=== PATIENT | female | born 1955 | race American Indian/Alaskan Native ===

== ENCOUNTER 2016-05-24 10:55 | Inpatient (IN) | payer MEDICAID, OTHER ==
[2016-05-24 12:14] LABS: Hematocrit 36.3 % (30.3-42.9); Hemoglobin 11.6 gm/dl (10.1-14.3); Mean Corpuscular HGB Conc 32 % (30-34); Mean Corpuscular Hemoglobin 26 pg (28-32); Mean Corpuscular Volume 82 fl (79-97); Platelet Count 292 K/mm3 (140-440); Red Blood Count 4.43 M/mm3 (3.65-5.03); White Blood Count 10.5 K/mm3 (4.5-11.0)
[2016-05-24 12:23] LABS: Anion Gap 19 mmol/L; Blood Urea Nitrogen 18 mg/dL (7-17); Calcium 9.1 mg/dL (8.4-10.2); Carbon Dioxide 22 mmol/L (22-30); Chloride 96.7 mmol/L (98-107); Glucose 385 mg/dL (65-100); Potassium 4.4 mmol/L (3.6-5.0); Sodium 133 mmol/L (137-145)
--- NOTE | 2016-05-24 13:47 | XRay Report ---
RIGHT TOES, 3 VIEWS History: Cellulitis, evaluate for osteomyelitis. There appears to be soft tissue swelling and ulceration lateral to the fifth toe and medial to the great toe. Mild osteoarthritic changes are identified in the distal foot. No evidence for fracture, bony erosions or bone destruction. Impression: Soft tissue findings as described. No evidence for osteomyelitis on x-ray.
[2016-05-24] MEDS ORDERED: ZOSYN/NS 4.5GM/100ML 4.5 GM/100 ML VIAL IV ONE (16:00)
[2016-05-24] MEDS ORDERED: NACL 0.9% 1000 ML IV ONE (16:01)
--- NOTE | 2016-05-24 16:46 | Emergency Department Report ---
HPI - General Chief Complaint: Wound/Laceration Time Seen by Provider: 05/24/16 15:50 - HPI HPI: Chief complaint: Infected right foot HPI: Patient is an insulin-dependent diabetic and states she had a heating pad on her right foot last week developed a blister and subsequent infection. Patient has been on Bactrim for the last 5 days and states that her foot is getting worse. Patient has purulent drainage as well as swelling and erythema. Patient has not taken her insulin today or any of her medications. Mode of arrival: private car Source: Patient Began: Last Monday Duration: 5-6 days Context: See above Quality: Dull Severity: 10 out of 10 Improved with: Nothing Worsened with: Pain worse on walking Associated signs and symptoms: See above. No fever, nausea, vomiting ED Past Medical Hx - Past Medical History Hx Hypertension: Yes Hx Congestive Heart Failure: Yes Hx Diabetes: Yes Additional medical history: neuropathy - Surgical History Additional Surgical History: tubaligation - Social History Smoking Status: Current Every Day Smoker Substance Use Type: None - Medications Home Medications: Home Medications Medication Instructions Recorded Confirmed Last Taken Type Insulin Glargine [Lantus] 10 unit SUB-Q QHS 10/22/15 05/24/16 Unknown History Lisinopril [Zestril] 20 mg PO QDAY 10/22/15 05/24/16 1 Day Ago History Metformin HCl [Glucophage] 1,000 mg PO BID 10/22/15 05/24/16 1 Day Ago History traMADol [Ultram 50 MG tab] 50 mg PO Q6HR PRN #10 tablet 10/22/15 05/24/16 Unknown Rx Aspirin EC [Aspirin Enteric Coated 81 mg PO QDAY 05/24/16 05/24/16 1 Day Ago History TAB] AtorvaSTATin [Lipitor] 40 mg PO QHS 05/24/16 05/24/16 1 Day Ago History Carvedilol [Coreg] 12.5 mg PO BID 05/24/16 05/24/16 1 Day Ago History Furosemide [Lasix TAB] 40 mg PO BID 05/24/16 05/24/16 1 Day Ago History ED Review of Systems ROS: Stated complaint: DIABETIC RT TOE TURNING BLACK/RT TOE PAIN Other details as noted in HPI ROS Constitutional: No fever ENT: No uri symptoms Cardiovascular: No chest pain Respiratory: No sob or cough GI: No nausea vomiting or diarrhea : No dysuria frequency or urgency, Skin: See HPI Neuro: No focal weakness or numbness Psych: No depression Gabriel/lymph: No edema Physical Exam - Physical Exam Vital Signs: Vital Signs 05/24/16 11:33 Temperature 98.3 F Pulse Rate 90 Respiratory 18 Rate Blood Pressure 142/85 O2 Sat by Pulse 100 Oximetry Physical Exam: GENERAL: The patient is well-developed well-nourished . HEENT: Normocephalic. Atraumatic. Extraocular motions are intact. Patient has moist mucous membranes. NECK: Supple. No meningitic signs are noted. There is no adenopathy noted. CHEST/LUNGS: Clear to auscultation. There is no respiratory distress noted. HEART/CARDIOVASCULAR: Regular. There is no tachycardia. There is no gallop rub or murmur. ABDOMEN: Abdomen is soft, nontender. Patient has normal bowel sounds. There is no abdominal distention. SKIN: There is no edema. There is no diaphoresis. Right fifth toe with a large flap to the lateral fifth toe and bilateral foot. There is erythema and swelling and tenderness to the forefoot. Neurovascular intact. NEURO: The patient is awake, alert, and oriented. The patient is cooperative. The patient has no focal neurologic deficits. The patient has normal speech. MUSCULOSKELETAL: There is no tenderness or deformity. There is no limitation range of motion. There is no evidence of acute injury. ED Course Vital Signs 05/24/16 11:33 Temperature 98.3 F Pulse Rate 90 Respiratory 18 Rate Blood Pressure 142/85 O2 Sat by Pulse 100 Oximetry - Reevaluation(s) Reevaluation #1: 05/24/16 16:57 Wound was cultured and patient given zosyn and admitted to the hospitalist. Also given 2 L normal saline and 5 units of regular insulin IV ED Medical Decision Making - Lab Data Result diagrams: 05/24/16 11:54 05/24/16 11:54 Laboratory Tests 05/24/16 05/24/16 11:54 11:54 Calcium 9.1 C-Reactive Protein 4.90 H Critical care attestation.: If time is entered above; I have spent that time in minutes in the direct care of this critically ill patient, excluding procedure time. ED Disposition Clinical Impression: Cellulitis of right foot, Hyperglycemia Disposition: OP ADMITTED IP TO THIS HOSP Is pt being admited?: Yes Does the pt Need Aspirin: No Condition: Fair Instructions: Diabetes Mellitus Type 2 in Adults (ED) Time of Disposition: 16:01 (minute to the hospitalist)
--- NOTE | 2016-05-24 16:55 | Admit Criteria Form ---
Admission Criteria Documentation: CELLULITIS Clinical Indications for Admission to Inpatient Care (Place 'X' for any and all applicable criteria): Admission is indicated for ANY ONE of the following(1)(2)(3)(4)(5): [ ]I. Limb-threatening infection [X]II. High-risk comorbid condition as indicated by ANY ONE of the following: [X]a) Uncontrolled diabetes (eg, HbA1c greater than 10% (0.1)) [ ]b) Cirrhosis [ ]c) Neutropenia [ ]d) Asplenia [ ]e) Immunosuppression [ ]f) Symptomatic heart failure [ ]III. Failure of outpatient therapy as indicated by ALL of the following: [ ]a) Progression or no improvement after adequate trial (minimum of 48 hours, with longer period for stable lower extremity infection) [ ]b) Adequate antibiotic regimen as indicated by use of ANY ONE of the following: [ ]i) First-generation cephalosporin (e.g., cephalexin) [ ]ii) Antistaphylococcal penicillin (e.g., dicloxacillin) [ ]iii) Penicillin-allergic patient regimen (clindamycin, extended-spectrum fluoroquinolone, or doxycycline) [ ]iv) Resistant organism (eg, methicillin-resistant Staphylococcus aureus) regimen (6) [ ]c) Outpatient intravenous therapy regimen is not appropriate due to ANY ONE of the following. (7)(8)(9)(10): [ ]i) It was tried and was not successful (eg, progression of infection). [ ]ii) It is not available or cannot be arranged in a clinically appropriate time frame (e.g., the next day). [ ]iii) Clinical presentation (eg, acuity of infection, rapidity of progression, confirmed or suspected bacteremia) is judged to require ALL of the following: [ ]1) Immediate initiation of intravenous therapy ( eg, cannot wait for next day) [ ]2) Intensity of patient monitoring and observation (eg, vital sign measurement, checks for infection progression) that cannot be provided at other than inpatient level of care [ ]IV. Mental status changes [ ]V. Bacteremia [ ]. Hemodynamic instability [ ]VII. Suspected necrotizing soft tissue infection (e.g., gas in tissue)(11)( 12) [ ]VIII. Orbital infection (13)(14) [ ]IX. Associated surgical procedure (e.g., abscess drainage, debridement) not amenable to outpatient, emergency department, or observation care [ ]X. Cutaneous gangrene [ ]XI. High fever (temperature greater than 39.5 degrees C (103.1 degrees F) (oral)) not responsive to outpatient, emergency department, or observation care therapy [ ]XIII. Inpatient admission required rather than observation care (Also use Cellulitis: Observation Care as appropriate) because of ANY ONE of the following : [ ]a) Periorbital or perineal infection that is severe or worsening [ ]b) Severe pain requiring acute inpatient management [ ]c) IV fluid to replace significant ongoing (e.g., for over 24 hours) losses (greater than 3L/m2 per day) [ ]d) Compartment syndrome monitoring (17) [ ]e) Strict or protective (eg, laminar flow) isolation [ ]f) Urgent debridement or skin grafting [ ]g) Bone or joint debridement [ ]h) Immediate inpatient surgery [ ]i) Other condition, treatment or monitoring requiring inpatient admission Extended stay beyond goal length of stay may be needed for (1)(18): [ ]a) Necrotizing soft tissue infection or fasciitis [ ]b) Gram-negative infection [ ]c) Methicillin-resistant Staphylococcal aureus (MRSA) infection [ ]d) Peripheral venous insufficiency with cellulitis [ ]e) Extensive edema [ ]f) Sepsis or continued Hemodynamic instability [ ]g) Continued high fever or mental status change [ ]h) Bacteremia [ ]i) Active serious comorbid conditions ( eg, heart failure, renal insufficiency) The original [facility] content created by [facility] [employer] has been revised. The portions of the content which have been revised are identified through the use of italic text or in bold, and [facility] has neither reviewed nor approved the modified material. All other unmodified content is copyright [facility] Please see references footnoted in the original [facility] [employer] edition 2016 Admission Criteria Met: Yes
[2016-05-24] MEDS: PERCOCET 5/325 PO PRN (23:08)
[2016-05-25] MEDS ORDERED: ULTRAM PO PRN (00:36)
--- NOTE | 2016-05-25 00:36 | Event Note ---
Date: 05/24/16 See H/p in reports R Foot cellulitis predisposed by a burn injury to Rt Great toe. IDDM HTN HLD
[2016-05-25] MEDS: CLEOCIN 900 MG/50 mL 900 MG/50 ML BAG IV SCH ×4 (01:52→23:46)
[2016-05-25] MEDS: COREG PO SCH ×2 (01:53→10:44)
--- NOTE | 2016-05-25 03:10 | History and Physical Report ---
CHIEF COMPLAINT: Infected right foot for 5 days. HISTORY OF PRESENT ILLNESS: A 60-year-old -[place] female with history of insulin-dependent diabetes, apparently applied heating pad to her right foot last week and developed a blister. She ruptured the blister without keeping it closed till the blister ruptured spontaneously. The patient had purulent drainage from the blister site. Post rupture of blister infection spread from the right great toe to two-thirds of the right foot and up to the top of the ankle. No fever, no chills. Pain is about 5 on a scale of 1-10. Duration is 5-6 days. No relieving or exacerbating factors. Worsened with walking. No associated symptoms like fever, nausea, vomiting. PAST MEDICAL HISTORY: Significant for hypertension, congestive heart failure, diabetes, hyperlipidemia, peripheral neuropathy. PAST SURGICAL HISTORY: Tubal ligation. SOCIAL HISTORY: Current everyday smoker. CURRENT MEDICATIONS: Lantus 10 units subQ at bedtime, lisinopril 20 mg p.o. daily, metformin 1000 mg twice a day, tramadol 50 mg q.6h. p.r.n., aspirin 81 mg p.o. daily, atorvastatin 40 mg p.o. at bedtime, Coreg 12.5 p.o. b.i.d., furosemide 40 mg p.o. b.i.d. REVIEW OF SYSTEMS: CONSTITUTIONAL: No fever, no chills. No weight loss, no weight gain. HEENT: No sore throat, no postnasal drip. CARDIOVASCULAR AND RESPIRATORY SYSTEM: No shortness of breath, no chest pain, no diaphoresis. No palpitations. Little cough productive of yellow sputum. No wheezing, no rhonchi. GASTROINTESTINAL: No nausea, no vomiting, no diarrhea. GENITOURINARY: No dysuria, no flank pain. MUSCULOSKELETAL: Right foot redness up to the ankle. Ruptured blister with slight erythema and signs of infection on the right great toe. CENTRAL NERVOUS SYSTEM: Alert and oriented x 4, nonfocal exam. LABORATORY DATA: White count is 10,500, H and H 11.6 and 36.3, platelet count is 292,000. Sodium is 133, slightly low, potassium is 4.4, chloride is 96.7, bicarbonate is 22, BUN and creatinine is 18 and 1.0, glucose is 385. C-reactive protein is 4.9. ASSESSMENT AND PLAN: 1. Right foot cellulitis. The patient started on clindamycin 900 q.8h. We will reevaluate the antibiotic if there is no improvement in 48 hours. The patient was recently initiated on Zosyn. I feel this is too powerful for this infection. The patient should respond to clindamycin. 2. Insulin-dependent diabetes. Continue insulin. 3. Hypertension. Continue lisinopril 20 mg p.o. daily. 4. Congestive heart failure. Continue Lasix 40 mg twice a day. 5. Hypertension. Continue Coreg 12.5 b.i.d. and lisinopril 20 mg daily. 6. Hyperlipidemia. Continue Lipitor 40 mg p.o. daily. 7. Coronary artery disease. Continue aspirin 81 mg daily. 8. Deep venous thrombosis prophylaxis, Lovenox 40 mg subcutaneous daily. JOB# [id number] ALE/KATRINA
[2016-05-25] MEDS: PERCOCET 5/325 PO PRN ×3 (06:07→19:50)
[2016-05-25] MEDS: NOVOLOG SUB-Q SCH ×3 (08:28→17:14)
[2016-05-25] MEDS: GLUCOPHAGE PO SCH ×2 (08:29→17:12)
[2016-05-25] MEDS: ZESTRIL PO SCH (10:44)
[2016-05-25] MEDS: LASIX PO SCH (10:44)
[2016-05-25] MEDS: HALFPRIN EC PO SCH (10:44)
--- NOTE | 2016-05-25 11:01 | Progress Note ---
Assessment and Plan Assessment and plan: 60-year-old woman with a past history of insulin-dependent diabetes who apparently had applied a heating pad to her right foot, she then went on to develop a blister on her right foot, blister ruptured after which she's developed erythema and swelling and pain for 5-6 days prompting her to come in to the hospital. Right foot x-ray, image reviewed Evidence of cellulitis with's soft tissue swelling, no bony destruction 1. Right foot Cellulitis continue abx, will need podiatry outpatient followup for special shoes and socks given neuropathy 2. DM cotninue insulins 3. Congestive heart failure euvolemic, continue current meds 4. Hypertension continue home meds History Interval history: Pain and swelling in right foot is much improved Hospitalist Physical - Physical exam Narrative exam: General: Patient appears well in no distress HEENT: MMM, EOMI cardiac: S1-S2 heard lungs: clear to auscultation, abdomen: soft, nontender, nondistended bowel sounds positive extremities: eythema, swelling and tenderness on lateral foot, ulcer on 5th toe Skin: no rash or lesion Neuro: no focal deficit Psych: appropriate behavior and mood, cognition intact - Constitutional Vitals: Temp Pulse Resp BP Pulse Ox 98.3 F 78 18 124/68 97 05/25/16 07:30 05/25/16 07:30 05/25/16 07:30 05/25/16 10:44 05/25/16 07:30 Results - Labs CBC & Chem 7: 05/24/16 11:54 05/24/16 11:54 Labs: Laboratory Last Values WBC 10.5 K/mm3 (4.5-11.0) 05/24/16 11:54 RBC 4.43 M/mm3 (3.65-5.03) 05/24/16 11:54 Hgb 11.6 gm/dl (10.1-14.3) 05/24/16 11:54 Hct 36.3 % (30.3-42.9) 05/24/16 11:54 MCV 82 fl (79-97) 05/24/16 11:54 MCH 26 pg (28-32) L 05/24/16 11:54 MCHC 32 % (30-34) 05/24/16 11:54 RDW 15.0 % (13.2-15.2) 05/24/16 11:54 Plt Count 292 K/mm3 (140-440) 05/24/16 11:54 ESR 62 mm/Hr (0-20) 05/24/16 11:54 Sodium 133 mmol/L (137-145) L 05/24/16 11:54 Potassium 4.4 mmol/L (3.6-5.0) 05/24/16 11:54 Chloride 96.7 mmol/L (98-107) L 05/24/16 11:54 Carbon Dioxide 22 mmol/L (22-30) 05/24/16 11:54 Anion Gap 19 mmol/L 05/24/16 11:54 BUN 18 mg/dL (7-17) H 05/24/16 11:54 Creatinine 1.0 mg/dL (0.7-1.2) 05/24/16 11:54 Estimated GFR > 60 ml/min 05/24/16 11:54 BUN/Creatinine Ratio 18.00 % 05/24/16 11:54 Glucose 385 mg/dL (65-100) H 05/24/16 11:54 POC Glucose 342 (70-105) H 05/25/16 07:17 Calcium 9.1 mg/dL (8.4-10.2) 05/24/16 11:54 C-Reactive Protein 4.90 mg/dL (0.00-1.30) H 05/24/16 11:54
[2016-05-25] MEDS ORDERED: PNEUMOVAX 23 IM ONE (12:00)
[2016-05-25] MEDS ORDERED: FLUARIX QUAD 2016-2017(36 MOS+) IM ONE (12:00)
[2016-05-25] MEDS ORDERED: INSULIN GLARGINE 10 UNIT SUB-Q SCH (22:00)
[2016-05-25] MEDS ORDERED: LEVEMIR SUB-Q SCH (22:00)
[2016-05-26] MEDS: COREG PO SCH ×2 (00:18→09:35)
[2016-05-26] MEDS: LASIX PO SCH ×2 (00:18→09:35)
[2016-05-26] MEDS: NOVOLOG SUB-Q SCH ×3 (00:19→12:33)
[2016-05-26] MEDS: PERCOCET 5/325 PO PRN ×3 (05:36→14:24)
[2016-05-26] MEDS: CLEOCIN 900 MG/50 mL 900 MG/50 ML BAG IV SCH ×2 (05:37→14:22)
[2016-05-26] MEDS: HALFPRIN EC PO SCH (09:34)
[2016-05-26] MEDS: GLUCOPHAGE PO SCH (09:35)
[2016-05-26] MEDS: ZESTRIL PO SCH (09:35)
--- NOTE | 2016-05-26 10:04 | Discharge Summary ---
Providers - Providers Date of Admission: 05/24/16 16:03 Attending physician: RADHA WRIGHT MD 05/25/16 07:22 Consult to Wound/ET Nurse [CONS] Urgent Reason For Exam: wound eval to the right small toe turning black. Primary care physician: GEOGRAPHIC ANALYST Hospitalization Condition: Fair Pertinent studies: Right foot x-ray, image reviewed Evidence of cellulitis with's soft tissue swelling, no bony destruction Hospital course: 60-year-old woman with a past history of insulin-dependent diabetes who apparently had applied a heating pad to her right foot, she then went on to develop a blister on her right foot, blister ruptured after which she's developed erythema and swelling and pain for 5-6 days prompting her to come in to the hospital. She was treated with IV antibiotics, after which her infection clinically improved, her insulin to optimize the treatment of diabetes , he was continued on Iressa for her medications but CHF and hypertension. She was also given a referral to conversion developer for follow-up of her diabetic foot infection and neuropathy. Discharge Diagnosis 1. Right foot Cellulitis 2. DM 3. Congestive heart failure 4. Hypertension Disposition: DC/TX HOME UNDER HOME HEALTH Time spent for discharge: 35 minutes Core Measure Documentation - Palliative Care Palliative Care/ Comfort Measures: Not Applicable - Core Measures Any of the following diagnoses?: heart failure, none - Heart Failure Discharge Requirements ELINOR/ARB for LVSD if EF <40%: Yes Beta wendy at discharge: Yes Exam - Constitutional Vitals: Temp Pulse Resp BP Pulse Ox 98.5 F 73 20 189/90 97 05/25/16 16:30 05/26/16 00:18 05/25/16 16:30 05/26/16 00:18 05/25/16 07:30 General appearance: Present: no acute distress, well-nourished - EENT Eyes: Present: PERRL ENT: hearing intact, clear oral mucosa - Neck Neck: Present: supple, normal ROM - Respiratory Respiratory effort: normal Respiratory: bilateral: CTA - Cardiovascular Heart Sounds: Present: S1 & S2. Absent: rub, click - Extremities Extremities: pulses symmetrical, No edema, abnormal (right 5th toe ulcer, mild erythema, much improved) Peripheral Pulses: within normal limits - Abdominal General gastrointestinal: Present: soft, non-tender, non-distended, normal bowel sounds Female genitourinary: Present: normal - Integumentary Integumentary: Present: clear, warm, dry - Musculoskeletal Musculoskeletal: gait normal, strength equal bilaterally - Psychiatric Psychiatric: appropriate mood/affect, intact judgment & insight - Neurologic Neurologic: CNII-XII intact, moves all extremities Plan Follow up with: PRIMARY CARE, [Primary Care Provider] - 3-5 Days COLETTE BRUNER DPM [Staff Physician] - 7 Days Prescriptions: Insulin Glargine [Lantus VIAL] 15 unit SUB-Q QHS #1000 units Clindamycin [Clindamycin CAP] 300 mg PO Q6H #30 capsule traMADol [Ultram 50 MG tab] 50 mg PO Q6HR PRN #30 tablet PRN Reason: Pain
[2016-05-26 13:55] VITALS: BP 157/72
== END 2016-05-26 16:30 | disposition home health service (06) | DRG 603 ==
LOC: ED 10:55 → 3A 16:03
PROVIDERS: ADMIT Internal Medicine; ATTEND Internal Medicine
DX: L03.115 Cellulitis of right lower limb (principal); I50.9 Heart failure, unspecified; I25.10 Atherosclerotic heart disease of native coronary artery without angina pectoris; E11.65 Type 2 diabetes mellitus with hyperglycemia; I11.0 Hypertensive heart disease with heart failure; Z98.51 Tubal ligation status; E78.5 Hyperlipidemia, unspecified; F17.200 Nicotine dependence, unspecified, uncomplicated; G62.9 Polyneuropathy, unspecified; Z79.4 Long term (current) use of insulin; E11.42 Type 2 diabetes mellitus with diabetic polyneuropathy
CPT/HCPCS: 36415; 80048; 82962; 83036; 85027; 85652; 86140; 87076; 87116; 87186; 90686; 90732; 96365; 96375; 99406; A9270-GY; J1815; J1818; J2543; J7030